=== PATIENT | female | born 1980 | race Caucasian/White ===

== ENCOUNTER → 2020-01-09 | Outpatient (CLI) | payer BC | END | disposition home or self-care (01) | LOC: SLB 10:48 | PROVIDERS: ATTEND Specialist | DX: Z11.59 Encounter for screening for other viral diseases (principal) | CPT/HCPCS: C9803; U0003 ==

== ENCOUNTER 2020-01-11 09:19 | Inpatient (IN) | payer BC ==
[~2020-01-11] VITALS: Ht 152.4 cm; Wt 60.8 kg
[2020-01-11] MEDS ORDERED: OXYTOCIN/0.9 % SODIUM CHLORIDE 1,000 ML IV SCH (10:00)
[2020-01-11] MEDS ORDERED: LR 1,000 ML IV ONE (10:00)
[2020-01-11] MEDS ORDERED: TERBUTALINE SULFATE 1 MG/ML VIAL SUBCUT ONE (10:00)
[2020-01-11 10:52] LABS: BASOPHILS % (AUTO) 0.5 % (0.0-2.0); EOSINOPHILS % (AUTO) 0.1 % (0.0-4.0); HEMATOCRIT 36.7 % (36-48); HEMOGLOBIN 12.8 g/dL (12.0-16.0); LYMPHOCYTES # (AUTO) 1.6 K/uL (1.0-5.5); LYMPHOCYTES % (AUTO) 17.4 % (20.5-51.5); MEAN CORPUSCULAR HEMOGLOBIN 34 pg (27-31); MEAN CORPUSCULAR HGB CONC 35 % (32-36); MEAN CORPUSCULAR VOLUME 98 fL (79.0-98.0); MONOCYTES # (AUTO) 0.5 K/uL (0.0-1.0); MONOCYTES % (AUTO) 5.4 % (1.7-9.3); NEUTROPHILS # (AUTO) 7.2 K/uL (1.8-7.7); NEUTROPHILS % (AUTO) 76.6 % (40.0-70.0); PLATELET COUNT (AUTO) 181 K/uL (130-430); RED BLOOD CELL COUNT(AUTO) 3.73 MIL/uL (4.2-6.2); RED CELL DISTRIBUTION WIDTH 12.7 % (9.0-15.0); WHITE BLOOD COUNT (AUTO) 9.5 K/uL (4.8-10.8)
[2020-01-11 15:03] VITALS: BP_SYST 120
[2020-01-11] MEDS: LR 1,000 ML IV SCH ×2 (21:15→22:22)
[2020-01-11] MEDS ORDERED: ROPIVACAINE HCL/PF 0.2% 200 ML ONE (21:54)
[2020-01-11] MEDS ORDERED: fentaNYL CITRATE/PF 100 MCG/2 ML AMP ONE (21:54)
[2020-01-11] MEDS ORDERED: LR 500 ML IV ONE (22:35)
[2020-01-11] MEDS ORDERED: ROPIVACAINE HCL/PF 0.2% 100 ML EP SCH (22:35)
[2020-01-11] MEDS ORDERED: ePHEDrine sulfate 50 MG/ML VIAL IVP PRN (22:45)
[2020-01-11] MEDS ORDERED: FENT2mCg/mL-ROPIVA0.2%/NS EPID 200 ML EP SCH (22:45)
[2020-01-12] MEDS ORDERED: NS IRRIG SOLN 1000 ML IR ONE (00:10)
[2020-01-12] MEDS ORDERED: LR 1,000 ML IV.SOLN IV ONE (00:10)
[2020-01-12] MEDS ORDERED: MIDAZOLAM HCL 5 MG/ML VIAL (VERSED) IV ONE (00:10)
[2020-01-12] MEDS ORDERED: MORPHINE SULFATE 10MG/10ML PF AMP ONE (00:10)
[2020-01-12] MEDS ORDERED: fentaNYL CITRATE/PF 100 MCG/2 ML AMP ONE ×2 (00:10→13:11)
[2020-01-12] MEDS: LR 1,000 ML IV SCH (07:09)
[2020-01-12] MEDS ORDERED: TERBUTALINE SULFATE 1 MG/ML VIAL SUBCUT ONE (10:53)
[2020-01-12] MEDS ORDERED: ROPIVACAINE HCL/PF 0.2% 200 ML ONE (13:11)
[2020-01-12] MEDS ORDERED: FENT2mCg/mL-ROPIVA0.2%/NS EPID 200 ML EP SCH (13:30)
[2020-01-12] MEDS ORDERED: AMPICILLIN SODIUM 2 GM in NS 100 ML IV ONE (18:00)
[2020-01-12] MEDS ORDERED: AMPICILLIN SODIUM 2 GM VIAL ONE (18:36)
[2020-01-12] MEDS ORDERED: AMPICILLIN SODIUM 1 GM in NS 50 ML IV SCH (22:00)
[2020-01-12] MEDS ORDERED: LR 1,000 ML IV SCH (23:00)
[2020-01-12] MEDS ORDERED: CEFAZOLIN 2 GM IVPB PREMIX 50 ML IV ONE ×2 (23:00→23:27)
[2020-01-12] MEDS ORDERED: ONDANSETRON HCL 4 MG/2 ML VIAL IVP PRN ×2 (23:45)
[2020-01-12] MEDS ORDERED: DIPHENHYDRAMINE INJ 50 MG/ML VIAL IVP PRN ×2 (23:45)
[2020-01-12] MEDS ORDERED: KETOROLAC TROMETHAMINE 60 MG/2 ML VIAL IM PRN ×2 (23:45)
[2020-01-12] MEDS ORDERED: MORPHINE SULFATE 10MG/10ML PF AMP EP SCH (23:45)
[2020-01-12] MEDS ORDERED: NALOXONE HCL 0.4 MG/ML AMP (NARCAN) IVP PRN ×4 (23:45)
[2020-01-12] MEDS ORDERED: NALBUPHINE HCL 10 MG/ML AMP IVP PRN ×2 (23:45)
[2020-01-12] MEDS ORDERED: fentaNYL CITRATE/PF 100 MCG/2 ML AMP IVP PRN ×2 (23:45)
[2020-01-13] MEDS ORDERED: LR 1,000 ML IV SCH (00:02)
[2020-01-13 00:05] VITALS: BP_SYST 117
[2020-01-13] MEDS ORDERED: LANOLIN 7 GM OINT. TP PRN (00:15)
[2020-01-13] MEDS ORDERED: ANUSOL 1 EA SUPP.RECT (PREPARATION H) RC PRN (00:15)
[2020-01-13] MEDS ORDERED: SENNOSIDES/DOCUSATE SODIUM 1 TAB TABLET(SENOKOT-S) PO PRN (00:15)
[2020-01-13] MEDS ORDERED: OXYTOCIN/0.9 % SODIUM CHLORIDE 1,000 ML IV SCH (00:15)
[2020-01-13] MEDS ORDERED: BISACODYL 10 MG/SUPPOSITORY RC PRN (00:15)
[2020-01-13] MEDS: KETOROLAC TROMETHAMINE 30 MG VIAL IVP SCH ×4 (06:00→23:44)
[2020-01-13] MEDS: CEFAZOLIN 1 GM IVPB PREMIX 50 ML IV SCH ×3 (06:01→18:44)
[2020-01-13] MEDS: DOCUSATE SODIUM 100 MG CAPSULE PO PRN (10:53)
[2020-01-13] MEDS: SIMETHICONE 80 MG TAB.CHEW PO PRN (10:53)
[2020-01-13] MEDS ORDERED: DERMOPLAST SPRAY TP ONE (18:49)
[2020-01-13] MEDS ORDERED: WITCH HAZEL LEAF 1 MED.PAD MED.PAD TP ONE (18:49)
[2020-01-13 19:06] LABS: FTA-Ab (T PALLIDUM) Non Reactive (Non Reactive)
[2020-01-14] MEDS: WITCH HAZEL LEAF 1 MED.PAD MED.PAD TP PRN ×2 (03:48→23:27)
[2020-01-14] MEDS: DERMOPLAST SPRAY TP PRN ×2 (03:49→23:27)
[2020-01-14] MEDS: SIMETHICONE 80 MG TAB.CHEW PO PRN ×6 (04:19→23:26)
[2020-01-14] MEDS: DOCUSATE SODIUM 100 MG CAPSULE PO PRN (04:19)
[2020-01-14] MEDS ORDERED: IBUPROFEN 600 MG TABLET ONE (05:50)
[2020-01-14 07:55] LABS: BASOPHILS % (AUTO) 0.1 % (0.0-2.0); EOSINOPHILS % (AUTO) 0.4 % (0.0-4.0); HEMATOCRIT 31.3 % (36-48); HEMOGLOBIN 10.7 g/dL (12.0-16.0); LYMPHOCYTES # (AUTO) 1.4 K/uL (1.0-5.5); LYMPHOCYTES % (AUTO) 12.5 % (20.5-51.5); MEAN CORPUSCULAR HEMOGLOBIN 34 pg (27-31); MEAN CORPUSCULAR HGB CONC 34 % (32-36); MEAN CORPUSCULAR VOLUME 100 fL (79.0-98.0); MONOCYTES # (AUTO) 0.4 K/uL (0.0-1.0); MONOCYTES % (AUTO) 3.8 % (1.7-9.3); NEUTROPHILS # (AUTO) 9.6 K/uL (1.8-7.7); NEUTROPHILS % (AUTO) 83.2 % (40.0-70.0); PLATELET COUNT (AUTO) 162 K/uL (130-430); RED BLOOD CELL COUNT(AUTO) 3.14 MIL/uL (4.2-6.2); RED CELL DISTRIBUTION WIDTH 13.3 % (9.0-15.0); WHITE BLOOD COUNT (AUTO) 11.6 K/uL (4.8-10.8)
[2020-01-14] MEDS: IBUPROFEN 600 MG TABLET PO SCH (23:26)
[2020-01-15] MEDS: DOCUSATE SODIUM 100 MG CAPSULE PO PRN (05:55)
[2020-01-15] MEDS: IBUPROFEN 600 MG TABLET PO SCH ×2 (05:55→12:29)
[2020-01-15] MEDS ORDERED: IBUPROFEN 600 MG TABLET PO SCH (06:00)
[2020-01-15] MEDS: SIMETHICONE 80 MG TAB.CHEW PO PRN (12:30)
== END 2020-01-15 15:55 | disposition home or self-care (01) | DRG 788 ==
LOC: SPU 09:19 → OBSVTOIN 09:52 → SPU 01-13 01:03
PROVIDERS: ADMIT Specialist; ATTEND Specialist
PROC: 10D00Z1 Extraction of Products of Conception, Low, Open Approach (ICD-10-PCS; principal; 2020-01-12 23:00)
DX: O62.2 Other uterine inertia (principal); O76 Abnormality in fetal heart rate and rhythm complicating labor and delivery; O69.1XX0 Labor and delivery complicated by cord around neck, with compression, not applicable or unspecified; Z37.0 Single live birth; Z3A.39 39 weeks gestation of pregnancy
CPT/HCPCS: 36415; 81002-TC; 85025; 86592; 86780; 86886; 86900; 86901; 94760; G0378; J0290; J0690; J1885; J2250; J2274; J2590; J3010; J3105; J7120